=== PATIENT | male | born 1990 | race Caucasian/White ===

== ENCOUNTER 2020-06-05 23:05 | Emergency (ER) | payer SELFPAY ==
[~2020-06-05] VITALS: Ht 165.1 cm; Wt 59.9 kg
--- NOTE | 2020-06-05 23:05 | NUR ---
CARLOS MYERS, PREBOOK. TAKEN TO CHAIR A
[2020-06-05 23:12] VITALS: BP 123/72
--- NOTE | 2020-06-05 23:46 | NUR ---
PATIENT BIB [employer]. PATIENT EXAMINED BY DR. GILL. PATIENT MEDICALLY CLEARED AND RELEASED IN CUSTODY IN STABLE CONDITION. ORIGINAL PRE-BOOK FORM GIVEN TO OFFICER YANDEL, #[id number]
== END 2020-06-05 23:46 ==
LOC: MED 23:05
DX: S40.812A Abrasion of left upper arm, initial encounter (principal); S40.811A Abrasion of right upper arm, initial encounter; Z02.89 Encounter for other administrative examinations; X58.XXXA Exposure to other specified factors, initial encounter; Y93.89 Activity, other specified; Y92.89 Other specified places as the place of occurrence of the external cause; Y99.8 Other external cause status
CPT/HCPCS: 99283